=== PATIENT | male | born 1975 | race American Indian/Alaskan Native ===

== ENCOUNTER 2017-06-21 20:59 | Emergency (ER) | payer OTHER ==
[2017-06-21 21:32] VITALS: BP 179/101
--- NOTE | 2017-06-22 04:16 | Emergency Department Report ---
ED Back Pain/Injury HPI - General Chief Complaint: Extremity Problem,Nontraumatic Stated Complaint: BACK,HIPS PAIN Time Seen by Provider: 06/22/17 04:02 Source: patient Mode of arrival: Ambulatory Limitations: No Limitations - History of Present Illness Initial Comments: This is a 42 y.o. male that presents with left flank pain for 2 days. Patient reports pain started out in low back and left hip that radiates to left leg for 1 month that is intermittent. States he went to play basketball 1 month ago and been in pain every since on and off. He is not taking anything for symptoms. States he went to work yesterday and placed backpack on the table and felt pain shoot from left pack to left leg. He was unable to stand straight. He is only able to lean to the right due to pain. Pain is sharp and constant. Denies frequency, urgency, dysuria, pelvic pain, or fever. MD Complaint: back pain -: days(s) (2) Similar Symptoms Previously: Yes (for 1 month intermittent low back pain radiating to LLE) Place: street Radiation: left leg Severity: moderate Severity scale (0 -10): 10 Quality: sharp, aching Consistency: constant Improves With: none Worsens With: movement, walking Context: while lifting Associated Symptoms: difficulty walking. denies: confusion, weakness, chest pain, numbness, cough, difficulty urinating, diaphoresis, incontinence, fever/ chills, constipation, headaches, abdominal pain, loss of appetite, malaise, nausea/vomiting, rash, seizure, shortness of breath, syncope - Related Data Previous Rx's Medication Instructions Recorded Last Taken Type Smita Powell [Felton Powell] 75 mg PO Q12H #30 tablet 10/29/13 Unknown Rx HYDROcodone/APAP 10-325 [[place] 1 each PO Q6HR PRN #20 tablet 10/29/13 Unknown Rx 10-325 mg TAB] amLODIPine [Norvasc] 10 mg PO DAILY #30 tab 10/29/13 Unknown Rx Cyclobenzaprine HCl [Flexeril 5 MG 5 mg PO TID PRN #20 tab 06/22/17 Unknown Rx TAB] Diclofenac Potassium 50 mg PO TID PRN #20 tablet 06/22/17 Unknown Rx Allergies Allergy/AdvReac Type Severity Reaction Status Date / Time No Known Allergies Allergy Verified 10/29/13 01:16 ED Review of Systems ROS: Stated complaint: BACK,HIPS PAIN Other details as noted in HPI Constitutional: denies: chills, fever Respiratory: denies: cough, shortness of breath, wheezing Cardiovascular: denies: chest pain, palpitations Gastrointestinal: denies: abdominal pain, nausea, vomiting, diarrhea, constipation Genitourinary: denies: urgency, dysuria, frequency, hematuria, discharge Musculoskeletal: back pain (low back pain, radiating to LLE), myalgia (left flank pain). denies: joint swelling, arthralgia Skin: denies: rash, lesions Neurological: denies: headache, weakness, numbness, paresthesias Psychiatric: denies: anxiety, depression ED Past Medical Hx - Past Medical History enlarged heart Family history: no significant family history ED Back Pain Physical Exam - Exam General: Vital signs noted. No distress. Alert and acting appropriately. Back/Abdomen: Yes Sacroiliac Tenderness (bilateral), Yes Flank Tenderness (left , tender with palpation, muscle spasm at latissiumus), Yes Straight Leg Raise Pain (LLE), No Abdominal Tenderness, No Perithoracic Tenderness, No Perilumbar Tenderness Neuro: Yes Normal Sensation, Yes Normal DTR's, Yes Normal Gait, No Motor Weakness ED Course Vital Signs 06/21/17 06/21/17 20:59 21:26 Temperature 98.3 F 98.3 F Pulse Rate 61 61 Respiratory 16 18 Rate Blood Pressure 179/110 179/101 O2 Sat by Pulse 98 98 Oximetry Ed Back Pain Tests - Tests Tests: Normal UA, Abnormal X Rays (here is mild sequela of lower lumbar disc degeneration) ED Medical Decision Making - Radiology Data Radiology results: report reviewed L-spine: No acute fracture or lumbar spine malalignment. There is mild sequela of lower lumbar disc degeneration. Consider additional imaging for worsening/persistent symptoms. - Medical Decision Making This is a 42 y.o. male that presents with low back pain radiating to LLE intermittently, worse on left flank. Patient was examined by me. Denies LOC, chest pain, abdominal pain, SOB, and numbness and tingling. L-spine xray obtained. No acute fracture or lumbar spine malalignment. There is mild sequela of lower lumbar disc degeneration. Consider additional imaging for worsening/ persistent symptoms. Patient informed of results. Start flexeril 5 mg po tid and diclofenac 50 mg q6h prn for muscle spasm and follow up with PCP. Continue using ice or heat for 20 minutes on and 2 hours off. Plan discussed with patient to discharge home and treat outpatient. He agrees with ER plan. Patient discharged home in stable condition. Follow up with PCP in 2-3 days. Critical care attestation.: If time is entered above; I have spent that time in minutes in the direct care of this critically ill patient, excluding procedure time. ED Disposition Clinical Impression: Muscle spasm of back, Back pain with left-sided sciatica Disposition: TO HOME OR SELFCARE Is pt being admited?: No Does the pt Need Aspirin: No Condition: Stable Instructions: Lumbar Radiculopathy (ED), Arthralgia (ED), Muscle Spasm (ED) Additional Instructions: Rest Use ice or heat on affected area for 20 minutes and off for 2 hours. Take pain medication as needed for pain. Don't drive or operate heavy machinery while taking muscle relaxers because they may cause drowsiness. Follow up with Primary Care Provider in 2-3 days. Prescriptions: Cyclobenzaprine HCl [Flexeril 5 MG TAB] 5 mg PO TID PRN #20 tab PRN Reason: Muscle Spasm Diclofenac Potassium 50 mg PO TID PRN #20 tablet PRN Reason: Pain Referrals: [facility] [Outside] - 3-5 Days [facility] [Outside] - 3-[address] [facility] [Outside] - 3-5 Days Forms: Work/School Release Form(ED) Time of Disposition: 05:25 Print Language: KYRGYZ
--- NOTE | 2017-06-22 04:40 | XRay Report ---
FINAL REPORT EXAM: XR SPINE LUMBOSACRAL 2-3V HISTORY: left flank pain, radiating to LLE TECHNIQUE: AP and lateral views lumbar spine PRIORS: None. FINDINGS: Lumbar lordosis is intact. Mild lower lumbar endplate spondylosis. Vertebral body heights and intervertebral disc spaces are preserved. No listhesis, spondylolysis or other fracture. IMPRESSION: No acute fracture or lumbar spine malalignment. There is mild sequela of lower lumbar disc degeneration. Consider additional imaging for worsening/persistent symptoms.
== END 2017-06-22 06:15 | disposition home or self-care (01) ==
LOC: ED 20:59
DX: M62.830 Muscle spasm of back (principal); M54.32 Sciatica, left side
CPT/HCPCS: 72100; 99283

== ENCOUNTER 2017-11-11 09:01 | Emergency (ER) | payer OTHER ==
[2017-11-11 09:28] VITALS: BP 161/101
[2017-11-11] MEDS ORDERED: TORADOL IM ONE (12:18)
--- NOTE | 2017-11-11 12:25 | Emergency Department Report ---
ED Back Pain/Injury HPI - General Chief Complaint: Back Pain/Injury Stated Complaint: BACK/HIP PAIN Time Seen by Provider: 11/11/17 12:13 Source: patient Limitations: No Limitations - History of Present Illness Initial Comments: This is a 42-year-old male nontoxic, well nourished in appearance, no acute signs of distress presents to the ED with c/o of acute on chronic lower back pain. Patient stated that the past 2 days he was moving and developed this pain. Patient states has history of sciatica nerve pain which is similar symptoms as today. Patient states that pain radiates through to his right lower extremity. Patient denies any trauma. Denies any bladder or bowel instability. Patient denies any urinary symptoms. Denies any fever, chills, nausea, vomiting, headache, stiff neck, chest pain or shortness of breath. Patient denies any numbness or tingling. Denies any allergies. Denies significant past medical history. MD Complaint: back pain -: days(s) (2) Similar Symptoms Previously: Yes Place: work Radiation: right leg Severity: mild Severity scale (0 -10): 8 Quality: aching Consistency: constant Improves With: immobilization, supine, sitting upright Worsens With: movement, walking Associated Symptoms: denies other symptoms. denies: confusion, weakness, chest pain, numbness, difficulty walking, cough, difficulty urinating, diaphoresis, incontinence, fever/chills, constipation, headaches, abdominal pain, loss of appetite, malaise, nausea/vomiting, rash, seizure, shortness of breath, syncope - Related Data Previous Rx's Medication Instructions Recorded Last Taken Type Smita Powell [Felton Powell] 75 mg PO Q12H #30 tablet 10/29/13 Unknown Rx HYDROcodone/APAP 10-325 [[place] 1 each PO Q6HR PRN #20 tablet 10/29/13 Unknown Rx 10-325 mg TAB] amLODIPine [Norvasc] 10 mg PO DAILY #30 tab 10/29/13 Unknown Rx Cyclobenzaprine HCl [Flexeril 5 MG 5 mg PO TID PRN #20 tab 06/22/17 Unknown Rx TAB] Diclofenac Potassium 50 mg PO TID PRN #20 tablet 06/22/17 Unknown Rx Cyclobenzaprine [Flexeril] 10 mg PO QHS PRN #10 tablet 08/16/18 Unknown Rx Ibuprofen [Motrin] 600 mg PO Q8H PRN #30 tablet 11/11/17 Unknown Rx Allergies Allergy/AdvReac Type Severity Reaction Status Date / Time No Known Allergies Allergy Verified 10/29/13 01:16 ED Review of Systems ROS: Stated complaint: BACK/HIP PAIN Other details as noted in HPI Constitutional: denies: chills, fever Eyes: denies: eye pain, eye discharge, vision change ENT: denies: ear pain, throat pain Respiratory: denies: cough, shortness of breath, wheezing Cardiovascular: denies: chest pain, palpitations Endocrine: no symptoms reported Gastrointestinal: denies: abdominal pain, nausea, diarrhea Genitourinary: denies: urgency, dysuria Musculoskeletal: back pain. denies: joint swelling, arthralgia Skin: denies: rash, lesions Neurological: denies: headache, weakness, paresthesias Psychiatric: denies: anxiety, depression Hematological/Lymphatic: denies: easy bleeding, easy bruising ED Past Medical Hx - Past Medical History Previous Medical History?: Yes Hx Hypertension: Yes (has a "water pill" but not taking it) Additional medical history: enlarged heart - Surgical History Past Surgical History?: Yes Additional Surgical History: tonsilectomy - Social History Smoking Status: Current Some Day Smoker Substance Use Type: None - Medications Home Medications: Home Medications Medication Instructions Recorded Confirmed Last Taken Type Diclofenac Dr [Felton Dr] 75 mg PO Q12H #30 tablet 10/29/13 Unknown Rx HYDROcodone/APAP 10-325 [[place] 1 each PO Q6HR PRN #20 tablet 10/29/13 Unknown Rx 10-325 mg TAB] amLODIPine [Norvasc] 10 mg PO DAILY #30 tab 10/29/13 Unknown Rx Cyclobenzaprine HCl [Flexeril 5 MG 5 mg PO TID PRN #20 tab 06/22/17 Unknown Rx TAB] Diclofenac Potassium 50 mg PO TID PRN #20 tablet 06/22/17 Unknown Rx Cyclobenzaprine [Flexeril] 10 mg PO QHS PRN #10 tablet 11/11/17 Unknown Rx Ibuprofen [Motrin] 600 mg PO Q8H PRN #30 tablet 11/11/17 Unknown Rx ED Physical Exam - General Limitations: No Limitations General appearance: alert, in no apparent distress - Head Head exam: Present: atraumatic, normocephalic - Eye Eye exam: Present: normal appearance Pupils: Present: normal accommodation - ENT ENT exam: Present: normal exam, mucous membranes moist - Neck Neck exam: Present: normal inspection, full ROM. Absent: tenderness, meningismus, lymphadenopathy - Respiratory Respiratory exam: Present: normal lung sounds bilaterally. Absent: respiratory distress, wheezes, rales, rhonchi, stridor, chest wall tenderness, accessory muscle use, decreased breath sounds, prolonged expiratory - Cardiovascular Cardiovascular Exam: Present: regular rate, normal rhythm, normal heart sounds. Absent: irregular rhythm, systolic murmur, diastolic murmur, rubs, gallop - GI/Abdominal GI/Abdominal exam: Present: soft, normal bowel sounds. Absent: distended, tenderness, guarding, rebound, rigid, diminished bowel sounds - Rectal Rectal exam: Present: deferred - Extremities Exam Extremities exam: Present: normal inspection, full ROM, normal capillary refill. Absent: tenderness - Back Exam Back exam: Present: normal inspection, full ROM, paraspinal tenderness (lumbar paraspinal). Absent: tenderness, CVA tenderness (R), CVA tenderness (L), muscle spasm, vertebral tenderness, rash noted - Expanded Back Exam Expanded Back exam: Absent: saddle anesthesia Back exam: Negative Straight Leg Raising: Left, Right - Neurological Exam Neurological exam: Present: alert, oriented X3, normal gait - Psychiatric Psychiatric exam: Present: normal affect, normal mood - Skin Skin exam: Present: warm, dry, intact, normal color. Absent: rash ED Course Vital Signs 11/11/17 09:24 Temperature 98.7 F Pulse Rate 61 Respiratory 18 Rate Blood Pressure 161/101 O2 Sat by Pulse 96 Oximetry - Reevaluation(s) Reevaluation #1: 11/11/17 12:26 Patient is speaking in full sentences with no signs of distress noted. ED Medical Decision Making - Medical Decision Making This is a 42-year-old male that presents with low back strain. Patient is stable was examined by me. There is no spinal tenderness. There is no cauda equina syndrome during examination. No bladder or bowel instability. Patient received Toradol 30 mg IM in the ED which preceded his symptoms has resolved and subsided. Patient is discharged with muscle relaxant and Motrin. Patient was instructed not to operate any machinery while taking muscle relaxant as they cause her drowsiness. Patient was referred to Follow-up with a primary care doctor in 3-5 days or if symptoms worsen and continue return to emergency room as soon as possible. At time of discharge, the patient does not seem toxic or ill in appearance. No acute signs of distress noted. Patient agrees to discharge treatment plan of care. No further questions noted by the patient. This chart is dictated with using [employer] Dictation Program Critical care attestation.: If time is entered above; I have spent that time in minutes in the direct care of this critically ill patient, excluding procedure time. ED Disposition Clinical Impression: Low back strain Qualifiers: Encounter type: initial encounter Qualified Code(s): S39.012A - Strain of muscle, fascia and tendon of lower back, initial encounter Disposition: TO HOME OR SELFCARE Is pt being admited?: No Does the pt Need Aspirin: No Condition: Stable Instructions: Low Back Strain (ED), Cyclobenzaprine (By mouth) Additional Instructions: Follow-up with your primary care doctor in 3-5 days or if symptoms worsen such as bladder or bowel stability, chest pain, short of breath, numbness or tingling sensation in extremities, headache, dizziness, visual changes, nausea vomiting, or abdominal pain, return back to emergency room as was possible. Take ibuprofen and Flexeril as prescribed. Do not operate heavy machinery while taking Flexeril due to sedation Prescriptions: Cyclobenzaprine [Flexeril] 10 mg PO QHS PRN #10 tablet PRN Reason: Muscle Spasm Ibuprofen [Motrin] 600 mg PO Q8H PRN #30 tablet PRN Reason: Pain Referrals: PRIMARY CAREMD [Primary Care Provider] - 3-5 Days JERI RAY MD [Staff Physician] - 3-5 Days [facility] [Outside] - [facility] - [facility]5 Days Forms: Work/School Release Form(ED)
== END 2017-11-11 12:35 | disposition home or self-care (01) ==
LOC: ED 09:01
DX: S39.012A Strain of muscle, fascia and tendon of lower back, initial encounter (principal); I10 Essential (primary) hypertension; F17.200 Nicotine dependence, unspecified, uncomplicated; Z90.49 Acquired absence of other specified parts of digestive tract; Z79.899 Other long term (current) drug therapy; X58.XXXA Exposure to other specified factors, initial encounter; Y93.89 Activity, other specified; Y99.8 Other external cause status; Y92.89 Other specified places as the place of occurrence of the external cause
CPT/HCPCS: 96372; 99282; J1885

== ENCOUNTER 2019-04-18 08:36 | Emergency (ER) | payer OTHER ==
[2019-04-18] MEDS ORDERED: TETANUS,DIPH,PERTUSS(ACELL) VACCINE 0.5 ML SYRINGE IM ONE (09:52)
[2019-04-18] MEDS ORDERED: IBUPROFEN 800 MG TAB PO ONE (09:52)
--- NOTE | 2019-04-18 10:45 | Emergency Department Report ---
- General Chief Complaint: Extremity Injury, Lower Stated Complaint: RT FOOT NAIL/PAIN Time Seen by Provider: 04/18/19 09:28 Source: patient Mode of arrival: Ambulatory Limitations: No Limitations - History of Present Illness Initial Comments: 44 yo AA male comes in with R foot pain after stepping on nail yesterday. he did have shoe on. and pulled the shoe from the nail- nail came out. Just wanted to make sure it was not injured. Needs tdap No other injury -: Sudden, days(s) Place: work Patient Tetanus UTD: No Context: accidental Associated Symptoms: none - Related Data Previous Rx's Medication Instructions Recorded Last Taken Type Diclofenac Dr [Felton Powell] 75 mg PO Q12H #30 tablet 10/29/13 Unknown Rx HYDROcodone/APAP 10-325 [[place] 1 each PO Q6HR PRN #20 tablet 10/29/13 Unknown Rx 10-325 mg TAB] amLODIPine 10 mg PO DAILY #30 tab 10/29/13 Unknown Rx Cyclobenzaprine HCl [Flexeril 5 MG 5 mg PO TID PRN #20 tab 06/22/17 Unknown Rx TAB] Diclofenac Potassium 50 mg PO TID PRN #20 tablet 06/22/17 Unknown Rx Cyclobenzaprine [Flexeril] 10 mg PO QHS PRN #10 tablet 11/11/17 Unknown Rx Ibuprofen [Motrin] 600 mg PO Q8H PRN #30 tablet 11/11/17 Unknown Rx Amoxicillin [Trimox CAP] 500 mg PO BID #20 capsule 04/18/19 Unknown Rx Allergies Allergy/AdvReac Type Severity Reaction Status Date / Time No Known Allergies Allergy Verified 04/18/19 08:41 ED Review of Systems ROS: Stated complaint: RT FOOT NAIL/PAIN Other details as noted in HPI Comment: All other systems reviewed and negative ED Past Medical Hx - Past Medical History Previous Medical History?: Yes Hx Hypertension: Yes (has a "water pill" but not taking it) Additional medical history: Enlarged heart - Surgical History Past Surgical History?: Yes Additional Surgical History: tonsilectomy - Family History Family history: no significant - Social History Smoking Status: Current Some Day Smoker - Medications Home Medications: Home Medications Medication Instructions Recorded Confirmed Last Taken Type Diclofenac Dr [Felton Powell] 75 mg PO Q12H #30 tablet 10/29/13 Unknown Rx HYDROcodone/APAP 10-325 [[place] 1 each PO Q6HR PRN #20 tablet 10/29/13 Unknown Rx 10-325 mg TAB] amLODIPine 10 mg PO DAILY #30 tab 10/29/13 Unknown Rx Cyclobenzaprine HCl [Flexeril 5 MG 5 mg PO TID PRN #20 tab 06/22/17 Unknown Rx TAB] Diclofenac Potassium 50 mg PO TID PRN #20 tablet 06/22/17 Unknown Rx Cyclobenzaprine [Flexeril] 10 mg PO QHS PRN #10 tablet 11/11/17 Unknown Rx Ibuprofen [Motrin] 600 mg PO Q8H PRN #30 tablet 11/11/17 Unknown Rx Amoxicillin [Trimox CAP] 500 mg PO BID #20 capsule 04/18/19 Unknown Rx ED Physical Exam - General Limitations: No Limitations General appearance: alert, in no apparent distress - Head Head exam: Present: atraumatic, normocephalic - Eye Eye exam: Present: normal appearance - ENT ENT exam: Present: mucous membranes moist - Neck Neck exam: Present: normal inspection - Respiratory Respiratory exam: Present: normal lung sounds bilaterally. Absent: respiratory distress - Cardiovascular Cardiovascular Exam: Present: regular rate, normal rhythm. Absent: systolic murmur, diastolic murmur, rubs, gallop - GI/Abdominal GI/Abdominal exam: Present: soft, normal bowel sounds - Rectal Rectal exam: Present: deferred - Extremities Exam Extremities exam: Present: normal inspection - Back Exam Back exam: Present: normal inspection - Neurological Exam Neurological exam: Present: alert, oriented X3 - Psychiatric Psychiatric exam: Present: normal affect, normal mood - Skin Skin exam: Present: warm, dry, intact, normal color, other (puncture wound b ottom of foot- under great toe). Absent: rash ED Course Vital Signs 04/18/19 04/18/19 08:40 11:30 Temperature 98.0 F Pulse Rate 73 65 Respiratory 16 20 Rate Blood Pressure 224/148 Blood Pressure 187/126 [Right] O2 Sat by Pulse 97 Oximetry ED Medical Decision Making - Radiology Data Radiology results: report reviewed, image reviewed - Medical Decision Making xray noted tdap updated Vital Signs 04/18/19 08:40 Temperature 98.0 F Pulse Rate 73 Respiratory 16 Rate Blood Pressure 224/148 O2 Sat by Pulse 97 Oximetry dc home with rx and pcp follow up pt's bp elevated- he has no hx of htn. he states when he goes to MD it goes up and when he is in pain he will monitor bp follow up to pcp give no cp/sob/headache etc. - Differential Diagnosis ro fx Critical care attestation.: If time is entered above; I have spent that time in minutes in the direct care of this critically ill patient, excluding procedure time. ED Disposition Clinical Impression: Puncture wound, Elevated blood pressure reading Disposition: DC-01 TO HOME OR SELFCARE Is pt being admited?: No Does the pt Need Aspirin: No Condition: Stable Additional Instructions: KEEP WOUND CLEAN AND DRY KEEP COVERED WITH GUAZE/BANDAGE MOTRIN OR TYLENOL NEEDED FOR PAIN ANTIBIOTIC ORDERED TODAY FOLLOW UP WITH PCP IF NEEDED Prescriptions: Amoxicillin [Trimox CAP] 500 mg PO BID #20 capsule Referrals: COLLIN ELLSWORTH MD [Staff Physician] - 3-5 Days Forms: Work/School Release Form(ED) Time of Disposition: 10:58
--- NOTE | 2019-04-18 10:47 | XRay Report ---
LEFT FOOT HISTORY: Pain. COMPARISON: None. TECHNIQUE: 2 views of the left foot were obtained. FINDINGS: Bones: No fracture or dislocation. Joint spaces: Hallux valgus deformity and moderate osteoarthritis at the first MTP joint. Soft tissues: No significant abnormality. Additional findings: A tiny plantar calcaneal spur. IMPRESSION: 1. Hallux valgus deformity and moderate osteoarthritis at the first MTP joint. 2. No erosions. Signer Name: Marcel Mccray MD Signed: 04/18/2019 10:43 AM Workstation Name: [id number]
[2019-04-18 11:31] VITALS: BP 187/126
== END 2019-04-18 11:30 | disposition home or self-care (01) ==
LOC: ED 08:36
DX: S91.331A Puncture wound without foreign body, right foot, initial encounter (principal); I10 Essential (primary) hypertension; F17.200 Nicotine dependence, unspecified, uncomplicated; Z90.89 Acquired absence of other organs; Z79.899 Other long term (current) drug therapy; W26.8XXA Contact with other sharp object(s), not elsewhere classified, initial encounter; Y93.89 Activity, other specified; Y92.89 Other specified places as the place of occurrence of the external cause; Y99.8 Other external cause status
CPT/HCPCS: 90471; 90715